=== PATIENT | female | born 1995 | race Caucasian/White ===

== ENCOUNTER 2024-11-11 15:23 | Outpatient (CLI) | payer OTHER ==
[2024-11-11 15:29] VITALS: BP 125/65
== END 2024-11-11 16:17 | disposition home or self-care (01) ==
LOC: NST 15:23
PROVIDERS: ATTEND Obstetrics & Gynecology Maternal & Fetal Medicine
DX: Z34.83 Encounter for supervision of other normal pregnancy, third trimester (principal)

== ENCOUNTER 2024-11-14 08:16 | Outpatient (CLI) | payer OTHER | END 2024-11-14 09:04 | disposition home or self-care (01) | LOC: NST 08:16 | PROVIDERS: ATTEND Obstetrics & Gynecology Maternal & Fetal Medicine | DX: Z34.83 Encounter for supervision of other normal pregnancy, third trimester (principal) ==

== ENCOUNTER 2024-11-20 08:26 | Outpatient (CLI) | payer OTHER | END 2024-11-20 09:06 | disposition home or self-care (01) | LOC: NST 08:26 | PROVIDERS: ATTEND Obstetrics & Gynecology Gynecology | DX: Z34.83 Encounter for supervision of other normal pregnancy, third trimester (principal) ==

== ENCOUNTER 2024-11-24 13:41 | Inpatient (IN) | payer OTHER ==
[~2024-11-24] VITALS: Ht 162.6 cm; Wt 1.8 kg
[2024-11-24 13:43] VITALS: BP 112/70; O2SAT 98
[2024-11-24] MEDS ORDERED: SYNTHROID150 MCG PO (14:23)
[2024-11-24] MEDS ORDERED: PRENATAL TABLE1 EAC1 PO (14:24)
[2024-11-24] MEDS ORDERED: CHILDREN'S ASPI81 MG PO (14:24)
[2024-11-24] MEDS ORDERED: BETAMETHASONE ACETATE,SOD PHOS 30 MG/5 ML ML IM SCH (14:29)
[2024-11-24] MEDS ORDERED: RINGERS SOLUTION,LACTATED 1,000 ML IV SCH (14:30)
[2024-11-24 15:15] VITALS: BP 110/71
[2024-11-24 15:35] LABS: ALT/SGPT 18.0 U/L (12-78); AST/SGOT 16.0 U/L (15-37); BASO % 0.3 % (0.1-1.2); BILIRUBIN TOTAL 0.24 mg/dL (0.3-1.2); BUN CREA RATIO 11.0 (7.0-25.0); CREATININE SERUM 0.63 mg/dL (0.55-1.02); EOS # 0.13 (0.04-0.54); EOS % 1.2 % (0.7-7.0); GFR 110.95; GLOBULINA 3.5 G/DL (2.4-3.5); GLUCOSE FASTING 99.0 mg/dL (65-100); LYMPH # 1.94 (1.18-3.74); LYMPH % 17.3 % (19.3-53.1); MEAN PLATELET VOLUME 11.70 fl (9.4-12.4); MONO # 0.92 (0.24-0.82); MONO % 8.2 % (4.7-12.5); NEUT # 8.00 (1.56-6.13); NEUT % 71.0 % (34.0-71.1); OSMOLALITY SERUM 279.0 MOSM/KG (275-295); RED CELL DISTRIBUTION WIDTH 13.2 % (11.6-14.4)
[2024-11-24 16:14] LABS: INR 0.94
[2024-11-24 19:30] VITALS: BP 109/69
[2024-11-24 23:21] VITALS: BP 106/68
[2024-11-25 03:29] VITALS: BP 99/61
[2024-11-25 06:23] VITALS: BP 118/73; O2SAT 98
[2024-11-25 13:27] VITALS: BP 120/72
[2024-11-25] MEDS ORDERED: BETAMETHASONE ACETATE,SOD PHOS 30 MG/5 ML ML ONE (13:47)
[2024-11-25 15:15] VITALS: BP 108/66
[2024-11-25 19:50] VITALS: BP 109/68
[2024-11-25 23:29] VITALS: BP 118/69
[2024-11-26 03:22] VITALS: BP 89/50
[2024-11-26 06:54] VITALS: BP 122/71; O2SAT 98
[2024-11-26] MEDS ORDERED: OXYTOCIN 10 UNITS/ML VIAL ONE ×2 (11:15→17:12)
[2024-11-26] MEDS ORDERED: KETOROLAC TROMETHAMINE 30 MG VIAL IV SCH (12:28)
[2024-11-26] MEDS ORDERED: OXYTOCIN 1,000 ML IV ONE (12:30)
[2024-11-26] MEDS ORDERED: MORPHINE SULFATE 4 MG/ML CARTRIDGE IV SCH (13:00)
[2024-11-26] MEDS ORDERED: ERYTHROMYCIN BASE OPHT 1GM EACH TUBE OP ONE (13:45)
[2024-11-26] MEDS ORDERED: MORPHINE SULFATE 4 MG/ML VIAL IV ONE (14:40)
[2024-11-26 17:59] VITALS: BP 119/72
[2024-11-26 20:00] VITALS: BP 110/71
[2024-11-27 01:49] VITALS: BP 119/70
[2024-11-27] MEDS ORDERED: ACETAMINOPHEN 500 MG GEL..CAP PO SCH (06:00)
[2024-11-27 06:18] LABS: BASO % 0.2 % (0.1-1.2); EOS # 0.04 (0.04-0.54); EOS % 0.3 % (0.7-7.0); LYMPH # 1.84 (1.18-3.74); LYMPH % 12.0 % (19.3-53.1); MEAN PLATELET VOLUME 12.40 fl (9.4-12.4); MONO # 1.37 (0.24-0.82); MONO % 8.9 % (4.7-12.5); NEUT # 11.85 (1.56-6.13); NEUT % 77.4 % (34.0-71.1); RED CELL DISTRIBUTION WIDTH 13.0 % (11.6-14.4)
[2024-11-27 08:32] VITALS: BP 116/76; O2SAT 98
[2024-11-27] MEDS ORDERED: PNV,CALCIUM 72/IRON/FOLIC ACID 1 TAB TABLET PO SCH (09:00)
[2024-11-27] MEDS ORDERED: SIMETHICONE 125 MG CAPSULE PO SCH (09:00)
[2024-11-27] MEDS ORDERED: GABAPENTIN 300 MG CAPSULE PO SCH (09:00)
[2024-11-27] MEDS ORDERED: DOCUSATE SODIUM 100MG CAP PO SCH (09:00)
[2024-11-27] MEDS ORDERED: LEVOTHYROXINE SODIUM 150 MCG TABLET PO SCH (11:58)
[2024-11-27 16:00] VITALS: BP 112/60; O2SAT 97
[2024-11-28] VITALS: BP 118/71
[2024-11-28] MEDS ORDERED: LEVOTHYROXINE SODIUM 150 MCG TABLET PO SCH (06:00)
[2024-11-28 08:47] VITALS: BP 129/82
[2024-11-28 16:18] VITALS: BP 119/76
[2024-11-28 19:08] LABS: BASO % 0.4 % (0.1-1.2); EOS # 0.15 (0.04-0.54); EOS % 1.1 % (0.7-7.0); LYMPH # 2.57 (1.18-3.74); LYMPH % 19.0 % (19.3-53.1); MEAN PLATELET VOLUME 11.40 fl (9.4-12.4); MONO # 1.08 (0.24-0.82); MONO % 8.0 % (4.7-12.5); NEUT # 9.26 (1.56-6.13); NEUT % 68.4 % (34.0-71.1); RED CELL DISTRIBUTION WIDTH 13.1 % (11.6-14.4)
[2024-11-28 19:22] LABS: ALT/SGPT 20.0 U/L (12-78); AST/SGOT 18.0 U/L (15-37); BILIRUBIN TOTAL 0.23 mg/dL (0.3-1.2); BUN CREA RATIO 15.0 (7.0-25.0); CREATININE SERUM 0.88 mg/dL (0.55-1.02); GFR 75.45; GLOBULINA 3.4 G/DL (2.4-3.5); GLUCOSE FASTING 83.0 mg/dL (65-100); OSMOLALITY SERUM 282.0 MOSM/KG (275-295)
[2024-11-28 21:47] LABS: URINE APPEARANCE Clear; URINE BILIRRUBIN Negative (NEGATIVE); URINE BLOOD Large; URINE COLOR Yellow; URINE GLUCOSE Negative (NEGATIVE); URINE KETONE Negative (NEGATIVE); URINE LEUKOCYTE Negative; URINE NITRATE Negative; URINE PROTEIN Negative (NEGATIVE); URINE UROBILINOGEN 1.0 E.U./dl
[2024-11-28 21:50] LABS: URINE BACTERIA 61.1 uL (0.0-1933); URINE EPITHELIAL CELLS 9.0 uL (0.0-38.8); URINE RBC 323.8 uL (0.0-20.8); URINE WBC 10.3 uL (0.0-23.2)
[2024-11-28 21:51] LABS: URINE CAST 0.58 uL (0.0-1.40)
[2024-11-29 00:01] VITALS: BP 112/75; O2SAT 98
[2024-11-29 08:00] VITALS: BP 112/70
== END 2024-11-29 18:16 | disposition home or self-care (01) | DRG 786 ==
LOC: LDR 13:41 → OB/GYN 13:41 → O/R 11-26 14:11 → OB/GYN 11-26 14:53
PROVIDERS: Obstetrics & Gynecology; Obstetrics & Gynecology Gynecology; ADMIT Obstetrics & Gynecology Maternal & Fetal Medicine; ATTEND Obstetrics & Gynecology Maternal & Fetal Medicine
PROC: 4A1HXCZ Monitoring of Products of Conception, Cardiac Rate, External Approach (ICD-10-PCS; 2024-11-24)
PROC: BY4FZZZ Ultrasonography of Third Trimester, Single Fetus (ICD-10-PCS; 2024-11-25)
PROC: BY47ZZZ Ultrasonography of Fetal Umbilical Cord (ICD-10-PCS; 2024-11-25)
PROC: 10D00Z1 Extraction of Products of Conception, Low, Open Approach (ICD-10-PCS; principal; 2024-11-26 12:15)
DX: O36.5930 Maternal care for other known or suspected poor fetal growth, third trimester, not applicable or unspecified (principal); O60.14X0 Preterm labor third trimester with preterm delivery third trimester, not applicable or unspecified; O41.03X0 Oligohydramnios, third trimester, not applicable or unspecified; O26.843 Uterine size-date discrepancy, third trimester; O36.8130 Decreased fetal movements, third trimester, not applicable or unspecified; O32.1XX0 Maternal care for breech presentation, not applicable or unspecified; Z3A.35 35 weeks gestation of pregnancy; Z37.0 Single live birth